=== PATIENT | male | born 1980 | race Caucasian/White ===

== ENCOUNTER 2016-09-21 08:30 | Emergency (ER) | payer MEDICAID ==
[~2016-09-21] VITALS: Ht 172.7 cm; Wt 70.0 kg
[~2016-09-21 08:30] MED LIST: ERYT1OIN6 RIGHT EYE; HYDR-3498 PO
[2016-09-21 08:37] VITALS: Ht 172.7 cm; Wt 70.0 kg
--- NOTE | 2016-09-21 09:24 | ERD ---
ER Documentation Chief Complaint Date/Time DATE: 09/21/16 TIME: 09:22 Chief Complaint pt bib family with c/o neck pain x 1 wk, unk cause HPI This is a 36-year-old male presents to the ER with multiple complaints. Since Saturday patient states he has had anterior neck pain. He also complains of bilateral shoulder pain posterior neck pain headache entire body pain and bone pain. Patient denies any fevers or chills. He denies any night sweats or weight loss. Patient denies any cough or cold symptoms. Patient states that his pain is worse after he works, he works in construction. He denies any trauma or falls. He denies any nausea vomiting or diarrhea. He has been taking Tylenol which helps with his pain however it always returns after work ROS 12 point review of systems was done, all negative except per HPI. Medications Home Meds Active Scripts Naproxen* (Naprosyn*) 500 Mg Tablet, 500 MG PO BID Y for PAIN AND/OR INFLAMMATION, #30 TAB Prov:MATEO ADAMSON 09/21/16 Hydrocodone Bit-Acetaminophen* (Pinson*) 5-325 Mg Tab, 1 TAB PO Q4H Y for PAIN, # 20 TAB Prov:YON HERNANDEZ PA-C 01/23/15 Erythromycin (Erythromycin Opth) 3.5 Gm Oint..gm., 1 APPLIC RIGHT EYE QID Y for RIGHT EYE, #1 TUB Prov:YON HERNANDEZ PA-C 01/23/15 Allergies Allergies: Coded Allergies: No Known Allergy (Unverified , 09/21/16) PMhx/Soc Medical and Surgical Hx: pt denies Medical Hx, pt denies Surgical Hx History of Surgery: No Anesthesia Reaction: No Hx Neurological Disorder: No Hx Respiratory Disorders: No Hx Cardiac Disorders: No Hx Psychiatric Problems: No Hx Miscellaneous Medical Probl: No Hx Alcohol Use: Yes Hx Substance Use: No Hx Tobacco Use: No Smoking Status: Never smoker Physical Exam Vitals Vital Signs Date Time Temp Pulse Resp B/P Pulse Ox O2 Delivery O2 Flow Rate FiO2 09/21/16 08:37 98.3 70 18 142/81 100 Physical Exam GENERAL: The patient is well developed and appropriate for usual state of health , in no apparent distress. HEENT: Atraumatic. NECK: Mild cervical lymphadenopathy no swelling or redness of the neck. Patient has full range of motion of his neck. He is able to extend and flex and rotate his head without any problems. Negative Kernig negative Brudzinski CHEST: Clear to auscultation bilaterally. There are no rales, wheezes or rhonchi. HEART: Regular rate and rhythm. No murmurs, clicks, rubs or gallops. EXTREMITIES: Equal pulses bilaterally. There is no peripheral clubbing, cyanosis or edema. No focal swelling or erythema. Full range of motion. Grossly neurovascularly intact. NEURO: Alert and oriented. Cranial nerves II through XII are intact. SKIN: There is no apparent rash or petechia. The skin is warm and dry. Result Diagram: 09/21/1692709/21/16927 Results 24 hrs Laboratory Tests Test 09/21/16 09:28 White Blood Count 8.710^3/ul Red Blood Count 4.6810^6/ul Hemoglobin 13.8g/dl Hematocrit 41.2% Mean Corpuscular Volume 88.0fl Mean Corpuscular Hemoglobin 29.5pg Mean Corpuscular Hemoglobin Concent 33.5g/dl Red Cell Distribution Width 12.6% Platelet Count 57899^3/UL Mean Platelet Volume 8.9fl Neutrophils % 73.5% Lymphocytes % 18.9% Monocytes % 6.4% Eosinophils % 0.7% Basophils % 0.3% Nucleated Red Blood Cells % 0.0/100WBC Neutrophils # 6.410^3/ul Lymphocytes # 1.610^3/ul Monocytes # 0.610^3/ul Eosinophils # 0.110^3/ul Basophils # 0.010^3/ul Nucleated Red Blood Cells # 0.010^3/ul Sodium Level 141mmol/L Potassium Level 4.3mmol/L Chloride Level 106mmol/L Carbon Dioxide Level 27mmol/L Anion Gap 12 Blood Urea Nitrogen 10mg/dl Creatinine 0.62mg/dl Glucose Level 115mg/dl Calcium Level 9.4mg/dl Total Bilirubin 0.8mg/dl Direct Bilirubin 0.00mg/dl Indirect Bilirubin 0.8mg/dl Aspartate Amino Transf (AST/SGOT) 165IU/L Alanine Aminotransferase (ALT/SGPT) 189IU/L Alkaline Phosphatase 412IU/L Total Protein 8.6g/dl Albumin 4.2g/dl Globulin 4.40g/dl Albumin/Globulin Ratio 0.95 Procedures/MDM This is a 6-year-old male that presents to the ER with anterior neck pain and entire body pain. At this time patient's blood work is normal with no evidence of infections, electrolyte abnormalities. Patient may have a viral process going on. At this time there is evidence of strep throat, retropharyngeal abscess, peritonsillar abscess, severe cervical lymphadenopathy. Patient is not hypoxic in any respiratory distress. He does not have any problems with his airway. Patient will be sent home with naproxen. He needs to follow-up with his primary care doctor within 1-2 days return to ER sooner if symptoms worsen. My medical decision making was shared with the patient he understands and agrees with plan Departure Diagnosis: Primary Impression: Myalgia MATEO ADAMSON Sep 21, 2016 09:24
[2016-09-21 09:44] LABS: ADD SCAN DIFF NO
[2016-09-21 09:53] LABS: BASOPHILS % 0.3 % (0.0-2.0); EOSINOPHILS # 0.1 10^3/ul (0.0-0.5); EOSINOPHILS % 0.7 % (0.0-7.0); HEMATOCRIT 41.2 % (42.0-52.0); HEMOGLOBIN 13.8 g/dl (14.0-18.0); LYMPHOCYTES # 1.6 10^3/ul (0.8-2.9); LYMPHOCYTES % 18.9 % (15.0-51.0); MEAN CORPUSCULAR HEMOGLOBIN 29.5 pg (29.0-33.0); MEAN CORPUSCULAR HGB CONC 33.5 g/dl (32.0-37.0); MEAN PLATELET VOLUME 8.9 fl (7.4-10.4); MONOCYTE # 0.6 10^3/ul (0.3-0.9); MONOCYTES % 6.4 % (0.0-11.0); NEUTROPHIL # 6.4 10^3/ul (1.6-7.5); NEUTROPHILS % 73.5 % (39.0-77.0); PLATELET COUNT 370 10^3/UL (140-415); RED BLOOD COUNT 4.68 10^6/ul (4.70-6.10); RED CELL DISTRIBUTION WIDTH 12.6 % (11.5-14.5); WHITE BLOOD COUNT 8.7 10^3/ul (4.8-10.8)
[2016-09-21 10:03] LABS: ALBUMIN 4.2 g/dl (3.3-4.9); ALBUMIN/GLOBULIN RATIO 0.95; BILIRUBIN,INDIRECT 0.8 mg/dl (0-1.1); BILIRUBIN,TOTAL 0.8 mg/dl (0.2-1.3); CALCIUM 9.4 mg/dl (8.4-10.2); CREATININE 0.62 mg/dl (0.61-1.24); POTASSIUM 4.3 mmol/L (3.5-5.1); TOTAL PROTEIN 8.6 g/dl (6.1-8.1)
[2016-09-21] MEDS ORDERED: NAPR-260 PO (10:24)
== END 2016-09-21 10:36 | disposition home or self-care (01) ==
LOC: FTE 08:30
DX: M79.1 Myalgia (principal)
CPT/HCPCS: 80053; 85025; Z7502; 99283